=== PATIENT | female | born 1935 | race Caucasian/White ===

== ENCOUNTER → 2018-05-03 | Outpatient (CLI) | payer MEDICARE, BC ==
--- NOTE | 2018-05-03 16:34 | RAD ---
Indication:KNEE PAIN FOR A FEW MONTHS, NKI TECHNIQUE: 3 views of the right knee COMPARISON:None FINDINGS: No acute fracture or dislocation. Mild to moderate tricompartmental osteoarthritis. No joint effusion. Distal SFA and popliteal artery calcifications are seen. IMPRESSION: As above. Electronically signed by: John Germain DO (05/03/2018 4:31 PM) [facility]
== END | disposition home or self-care (01) ==
LOC: PMG 15:17
PROVIDERS: ATTEND Physician Assistant Medical
DX: M17.11 Unilateral primary osteoarthritis, right knee (principal); I70.201 Unspecified atherosclerosis of native arteries of extremities, right leg
CPT/HCPCS: 73562